=== PATIENT | male | born 1990 | race African-American/Black ===

== ENCOUNTER 2016-04-12 06:11 | Emergency (ER) | payer OTHER ==
[~2016-04-12] VITALS: Ht 182.9 cm; Wt 99.8 kg
[2016-04-12 07:41] LABS: POTASSIUM 3.6 mmol/L (3.6-5.2)
[2016-04-12 07:46] LABS: PLATELET COUNT 173 K/uL (142-355)
[2016-04-12 08:55] VITALS: BP 110/47; TEMP 98.6
== END 2016-04-12 10:09 | disposition short-term general hospital (02) ==
LOC: ED 06:11
DX: J18.9 Pneumonia, unspecified organism (principal); A41.9 Sepsis, unspecified organism; R06.2 Wheezing
CPT/HCPCS: 36415; 36600; 80053; 82805; 83605; 83880; 85027; 87040; 87081; 87804; 87880; 96360; 96361; 96374; 96375; 99285; J1885; J2543; J2930; Q9963